=== PATIENT | male | born 1960 | race Caucasian/White ===

== ENCOUNTER 2017-06-20 05:22 | Inpatient (IN) | payer BC ==
--- NOTE | 2017-06-20 06:11 | ED ---
General Adult HPI - General Chief complaint: Extremity Injury, Lower Stated complaint: right knee pain Time Seen by Provider: 06/20/17 05:27 Source: patient, RN notes reviewed, old records reviewed Mode of arrival: ambulatory Limitations: no limitations - History of Present Illness Initial comments: This is a 57-year-old male the ER for reevaluation of right knee pain. Patient' s plenty worsening and severe right knee pain. Patient has no medical history of similar complaints. Denies any injury or trauma. No history of diabetes no fevers. Patient does have significant redness or erythema and swelling to the right knee with significant wacko range of motion, patient is unable to bend knee - Related Data Home Medications Medication Instructions Recorded Confirmed No Known Home Medications [No 06/20/17 06/20/17 Known Home Medications] Allergies Allergy/AdvReac Type Severity Reaction Status Date / Time Penicillins Allergy Rash/Hives Verified 06/20/17 05:34 Review of Systems ROS Statement: Those systems with pertinent positive or pertinent negative responses have been documented in the HPI. ROS Other: All systems not noted in ROS Statement are negative. Past Medical History Past Medical History: Hypertension History of Any Multi-Drug Resistant Organisms: None Reported Past Surgical History: No Surgical Hx Reported Past Psychological History: No Psychological Hx Reported Smoking Status: Current every day smoker Past Alcohol Use History: None Reported Past Drug Use History: None Reported General Exam Limitations: no limitations General appearance: alert, in no apparent distress Head exam: Present: atraumatic, normocephalic, normal inspection Eye exam: Present: normal appearance, PERRL, EOMI. Absent: scleral icterus, conjunctival injection, periorbital swelling ENT exam: Present: normal exam, mucous membranes moist Neck exam: Present: normal inspection. Absent: tenderness, meningismus, lymphadenopathy Respiratory exam: Present: normal lung sounds bilaterally. Absent: respiratory distress, wheezes, rales, rhonchi, stridor Cardiovascular Exam: Present: regular rate, normal rhythm, normal heart sounds. Absent: systolic murmur, diastolic murmur, rubs, gallop, clicks GI/Abdominal exam: Present: soft, normal bowel sounds. Absent: distended, tenderness, guarding, rebound, rigid Extremities exam: Present: normal inspection, full ROM, normal capillary refill , other (Right is red and erythematous and swollen, significant decreased range of motion, significant effusion). Absent: tenderness, pedal edema, joint swelling, calf tenderness Back exam: Present: normal inspection Neurological exam: Present: alert, oriented X3, CN II-XII intact Psychiatric exam: Present: normal affect, normal mood Skin exam: Present: warm, dry, intact, normal color. Absent: rash Course Vital Signs 06/20/17 06/20/17 05:31 06:56 Temperature 97.6 F Pulse Rate 94 114 H Respiratory 18 18 Rate Blood Pressure 138/67 127/73 O2 Sat by Pulse 96 99 Oximetry - Reevaluation(s) Reevaluation #1: 06/20/17 06:10 Patient feels better with pain control still is decreased range of motion of right knee unable to bend knee and severe pain, knee remains warm and edematous Reevaluation #2: 06/20/17 07:16 Despite pain medications, patient remains in severe pain with decreased range of motion right knee EKG Findings - EKG Comments: EKG Findings:: EKG shows sinus rhythm rate of 79, MN 136, QRS 86, QTc 440 Medical Decision Making - Medical Decision Making 57 male to ER for evaluation of right Knee Pain Unknown Injury, X-Rays Negative for Injury, Joint Effusion Likely, Oral Effusion Positive, Patient Be Admitted for Evaluation regarding Possible Septic Arthritis Significant Right Knee Cellulitis, IV Antibiotics and Orthopedic Evaluation - Lab Data Result diagrams: 06/20/17 06:45 Lab Results 06/20/17 Range/Units 06:45 WBC 10.0 (3.8-10.6) k/uL RBC 4.62 (4.30-5.90) m/uL Hgb 15.0 (13.0-17.5) gm/dL Hct 45.0 (39.0-53.0) % MCV 97.5 (80.0-100.0) fL MCH 32.4 (25.0-35.0) pg MCHC 33.3 (31.0-37.0) g/dL RDW 12.8 (11.5-15.5) % Plt Count 210 (150-450) k/uL Neutrophils % 79 % Lymphocytes % 13 % Monocytes % 6 % Eosinophils % 1 % Basophils % 0 % Neutrophils # 7.9 H (1.3-7.7) k/uL Lymphocytes # 1.3 (1.0-4.8) k/uL Monocytes # 0.6 (0-1.0) k/uL Eosinophils # 0.1 (0-0.7) k/uL Basophils # 0.0 (0-0.2) k/uL - Radiology Data Radiology results: report reviewed (X-ray right knee negative), image reviewed Disposition Clinical Impression: Effusion, right knee, Cellulitis of right knee Narrative: r/o Septic Arthritis Disposition: ADMITTED IP TO THIS HOSP Condition: Fair Referrals: Liseth Rodas DO [Primary Care Provider] - 1-2 days
[2017-06-20] MEDS ORDERED: MORPHINE SULFATE 5 MG/ML SYRINGE IV STA (06:16)
[2017-06-20] MEDS ORDERED: SODIUM CHLORIDE 0.9% 1,000 ML IV STA ×2 (06:16)
[2017-06-20] MEDS ORDERED: cefTRIAXone IN SWFI 1,000 MG/10 ML SYRINGE IVP STA (06:17)
[2017-06-20] MEDS ORDERED: KETOROLAC 30 MG/ML 1 ML VIAL IVP STA (06:17)
[2017-06-20] MEDS ORDERED: VANCOMYCIN IV PER PHARMACY 1 EACH MISC MISCELLANE PRN (06:17)
[2017-06-20] MEDS ORDERED: VANCOMYCIN 1,500 MG in SODIUM CHLORIDE 0.9% 250 ML IVPB STA (06:20)
--- NOTE | 2017-06-20 06:35 | XR ---
EXAM: XR Right Knee, 3 views CLINICAL HISTORY: Reason: Pain TECHNIQUE: Three views of the right knee. COMPARISON: No relevant prior studies available. FINDINGS: Bones/joints: No fracture or malalignment identified. Slightly fragmented patellar enthesophyte superiorly. Likely small joint effusion. Soft tissues: Soft tissue edema and prepatellar soft tissue swelling. IMPRESSION: 1. Soft tissue edema and prepatellar soft tissue thickening. Correlate to exclude contusion or bursitis. Questionable small joint effusion. 2. No definitive fractures.
[2017-06-20 07:02] LABS: Basophils % (A) 0 %; Eosinophils # (A) 0.1 k/uL (0-0.7); Eosinophils % (A) 1 %; Lymphocytes # (A) 1.3 k/uL (1.0-4.8); Lymphocytes % (A) 13 %; MCH 32.4 pg (25.0-35.0); MCHC 33.3 g/dL (31.0-37.0); MCV 97.5 fL (80.0-100.0); Mean Platelet Volume 6.6; Monocytes # (A) 0.6 k/uL (0-1.0); Monocytes % (A) 6 %; Neutrophils # (A) 7.9 k/uL (1.3-7.7); Neutrophils % (A) 79 %; Platelet Count 210 k/uL (150-450); RBC 4.62 m/uL (4.30-5.90); RDW 12.8 % (11.5-15.5)
[2017-06-20 07:15] LABS: INR 1.1 (<1.2); Partial Thromboplastin Time 22.7 sec (22.0-30.0); Prothrombin Time 10.4 sec (9.0-12.0)
[2017-06-20 07:16] LABS: ALT 45 U/L (21-72); AST 24 U/L (17-59); Alkaline Phosphatase 58 U/L (38-126); Anion Gap 9 mmol/L; Blood Urea Nitrogen 17 mg/dL (9-20); C Reactive Protein 12.8 mg/L (<10.0); Calcium 9.3 mg/dL (8.4-10.2); Carbon Dioxide 25 mmol/L (22-30); Chloride 105 mmol/L (98-107); Glucose 109 mg/dL (74-99); Phosphorus 3.5 mg/dL (2.5-4.5); Potassium 4.2 mmol/L (3.5-5.1); Sodium 139 mmol/L (137-145); Total Protein 6.5 g/dL (6.3-8.2)
[2017-06-20 10:22] VITALS: BMI 25.7
[2017-06-20] MEDS ORDERED: HYDROcodone/APAP 5-325MG 1 EACH TAB PO PRN (12:09)
[2017-06-20] MEDS ORDERED: ALPRAZolam 0.25 MG TAB PO PRN (12:09)
[2017-06-20] MEDS ORDERED: TEMAZEPAM 15 MG CAP PO PRN (12:09)
[2017-06-20] MEDS ORDERED: HYDROmorphone 2 MG/ML 1 ML SYRINGE IVP PRN (12:09)
--- NOTE | 2017-06-20 13:57 | XR ---
EXAMINATION TYPE: XR chest 1V DATE OF EXAM: 06/20/2017 HISTORY: SEPSIS. REFERENCE: NONE. FINDINGS: There is some scarring or atelectasis at the left lung base. Lungs otherwise clear. Pleural spaces are clear. Heart size is upper limits of normal. IMPRESSION: 1. BORDERLINE CARDIOMEGALY. 2. SCARRING VERSUS ATELECTASIS, LEFT LUNG BASE.
--- NOTE | 2017-06-20 17:00 | HP ---
HISTORY AND PHYSICAL DATE OF SERVICE: 06/20/17 CHIEF COMPLAINTS: Right knee pain. HISTORY OF PRESENT ILLNESS: This 57-year-old gentleman with past medical history of hypertension, and other multiple medical issues being followed by Dr. Rodas in the outpatient setting noted to have right knee pain and swelling for the past few days. The pain and swelling increased and because of difficulty walking the patient presented to [facility] and admitted for further evaluation and treatment. There is no history of fever, rigors or chills. No history of headache, loss of consciousness or seizures. No chest pain and no palpitation at this time. Orthopedic evaluation in progress. PAST MEDICAL HISTORY: History of hypertension, history of smoking. MEDICATIONS: Medications prior to admission include home medications are none. ALLERGIES: ASPIRIN, PENICILLIN. FAMILY HISTORY: Hypertension in the family. SOCIAL HISTORY: History of smoking on a daily basis. No history of alcohol intake. REVIEW OF SYSTEMS: ENT: No diminished vision. No diminished hearing. Cardiovascular: No angina or palpitations. Respiratory: No cough or hemoptysis. GI as mentioned earlier. : No dysuria. NERVOUS SYSTEM: No numbness or weakness. Allergy/Immunology: No asthma or hayfever. Musculoskeletal: As mentioned earlier. HEMATOLOGY/ONCOLOGY: No history of anemia. Endocrine: No history of diabetes or hypothyroidism. Constitutional: As mentioned earlier. Dermatology: Negative. Rheumatology: Negative. Psychiatric: As mentioned earlier. PHYSICAL EXAMINATION: The patient is alert, oriented times three. Pulse 84, blood pressure 115/76, respiratory rate 16, temperature is 97.8, pulse ox 97% on room air. HEENT: Conjunctivae normal. Oral mucosa moist. Neck is no carotid bruit. No lymph node enlargement. Cardiovascular: S1-S2 muffled. No S3, no S4. Respiratory: Breath sounds diminished in the bases. No rhonchi and no crackles. ABDOMEN: Soft, nontender. No mass palpable. Legs right leg swelling and tenderness and warmth present. Right knee pain and swelling and some fluctuation also present and redness also present and warmth present. Nervous system: Higher functions as mentioned earlier, moves all 4 limbs, no focal motor or sensory deficits. lymphatics: No lymph nodes palpable in the neck, axillae or groin. SKIN: No ulcer, rashes or bleeding. LABS: At this time shows CBC within normal limits and plasma lactic acid 0.6. ASSESSMENT: 1. Possible right knee cellulitis with bursitis, rule out septic arthritis. 2. History hypertension. 3. History of nicotine dependence. 4. Increased blood sugar. RECOMMENDATIONS AND DISCUSSION: In this 57-year-old gentleman who presented with multiple complex medical issues , we will monitor the patient closely. Continue the current management and symptomatic treatment. Otherwise, at this time, I recommend monitor the blood pressure closely. Resume the home medications. Otherwise I would recommend orthopedic evaluation possible aspiration. Cultures will be obtained. Closely follow with multiple other consultants. Further recommendations to follow. MMODL / IJN: [id number] / BIANKA
[2017-06-20] MEDS ORDERED: VANCOMYCIN 1,500 MG in SODIUM CHLORIDE 0.9% 250 ML IVPB SCH (18:00)
[2017-06-20] MEDS: NICOTINE 14MG/24HR PATCH TRANSDERM SCH (21:02)
[2017-06-20] MEDS: HEPARIN SODIUM,PORCINE 5,000 UNIT/ML 1 ML VIAL SQ SCH (21:10)
[2017-06-21] MEDS: ceFAZolin IN SWFI 2 GM/20 ML SYRINGE IVP SCH ×4 (00:24→23:45)
[2017-06-21 07:10] LABS: Basophils % (A) 0 %; Eosinophils % (A) 1 %; HCT 39.9 % (39.0-53.0); HGB 13.4 gm/dL (13.0-17.5); Lymphocytes # (A) 1.6 k/uL (1.0-4.8); Lymphocytes % (A) 27 %; MCH 33.1 pg (25.0-35.0); MCHC 33.5 g/dL (31.0-37.0); MCV 98.7 fL (80.0-100.0); Mean Platelet Volume 7.3; Monocytes # (A) 0.5 k/uL (0-1.0); Monocytes % (A) 8 %; Neutrophils # (A) 3.6 k/uL (1.3-7.7); Neutrophils % (A) 62 %; Platelet Count 162 k/uL (150-450); RBC 4.05 m/uL (4.30-5.90); RDW 13.7 % (11.5-15.5); WBC 5.9 k/uL (3.8-10.6)
[2017-06-21 07:38] LABS: Anion Gap 7 mmol/L; Blood Urea Nitrogen 15 mg/dL (9-20); Calcium 8.6 mg/dL (8.4-10.2); Carbon Dioxide 23 mmol/L (22-30); Chloride 111 mmol/L (98-107); Glucose 80 mg/dL (74-99); Potassium 4.3 mmol/L (3.5-5.1); Sodium 141 mmol/L (137-145)
[2017-06-21] MEDS ORDERED: LIDOCAINE 2% INJ 20 MG/ML (20 ML MDV) SQ ONE (08:30)
[2017-06-21] MEDS: NICOTINE 14MG/24HR PATCH TRANSDERM SCH (08:55)
[2017-06-21] MEDS: PANTOPRAZOLE 40 MG TABLET PO SCH ×2 (08:58→09:00)
[2017-06-21] MEDS ORDERED: cefTRIAXone IN SWFI 1,000 MG/10 ML SYRINGE IVP SCH (09:00)
[2017-06-21] MEDS ORDERED: LIDOCAINE 1% INJ 10MG/ML (20 ML MDV) ONE (11:47)
[2017-06-21] MEDS: HEPARIN SODIUM,PORCINE 5,000 UNIT/ML 1 ML VIAL SQ SCH ×2 (12:04→20:35)
--- NOTE | 2017-06-21 12:04 | CONS ---
CONSULTATION DATE OF SERVICE: 06/20/2017. REASON FOR CONSULTATION: Right knee cellulitis. HISTORY OF PRESENT ILLNESS: The patient is a 57-year-old male, presented to the ER at [facility] this morning with chief complaint of right knee swelling and pain. Apparently symptoms started over the weekend when he started having pain in the right knee area. The patient describes this pain to be mostly throbbing, almost 10/10 when severe, and he did have difficulty bending the knee and walking on it made it worse. The patient did notice some minimal erythema to the knee area. With these symptoms acutely getting worse, he presented to the ER for further evaluation of the same. The patient denies any high-grade fever or chills. No history of any trauma or landing on the knee. The patient denies having a previous history of similar problems with these symptoms. The patient has been evaluated by the ER physician. The patient did have x-rays of the right pain that did shows soft tissue edema and prepatellar soft tissue swelling. The patient did not have any high-grade fever and his white count was normal at 10, though CRP was 12.8. The patient has been started on Rocephin and vancomycin, admitted to the hospital. ID as well as Orthopedics were consulted for further recommendation for the same. REVIEW OF SYSTEMS: CONSTITUTIONAL: Positive for weakness. Denies any high-grade fever. EYES: No complaints. ENT: No complaint. RESPIRATORY: No complaint. CARDIOVASCULAR: No complaint. GENITOURINARY: No complaint. MUSCULOSKELETAL: As per HPI. INTEGUMENTARY: As per HPI. PSYCHOLOGICAL: No complaint. ENDOCRINE: No complaint. NEUROLOGIC: No complaint. PAST MEDICAL HISTORY: Hypertension. PAST SURGICAL HISTORY: No major surgery. SOCIAL HISTORY: Positive for smoking. Patient currently a smoker, smokes about a pack a day. Denies drinking or drug use. FAMILY HISTORY: No pertinent findings noticed. ALLERGIES: ASPIRIN, PENICILLIN, penicillin which is a rash. MEDICATION: Currently on [place], Xanax, heparin, Dilaudid, nicotine patch, Protonix, Restoril , Rocephin, and vancomycin. EXAMINATION: Blood pressure 103/48 with a pulse of 52, temperature of 98.2, he is 98% room. GENERAL DESCRIPTION: A middle-aged male lying in bed in no distress. No tachypnea or accessory muscle of respiration use. HEENT: Shows no pallor or scleral icterus. Oral mucosa is dry. No pharyngeal erythema or thrush NECK: Trachea central, no thyromegaly. LUNGS: Unlabored breathing. Clear to auscultation anteriorly. No wheeze or crackle. HEART: S1, S2. Regular rate and rhythm. No added sounds. ABDOMEN: Soft, no tenderness. No guarding or rigidity. No organomegaly EXTREMITIES: No edema of the feet. MUSCULOSKELETAL: Right knee with minimal swelling with minimal erythema. It is painful to touch, slightly fluctuant. No skin breakdown. No drainage. NEUROLOGIC: The patient is awake, alert, oriented x3. Mood and affect normal. LABS: Hemoglobin is 15, white count of 10,000, BUN of 17, creatinine 1.0. Electrolytes have been normal. Liver enzymes are normal. CRP was 12.8. Blood cultures obtained and currently pending. X-rays of the right knee with soft tissue swelling. DIAGNOSTIC IMPRESSION AND PLAN: Patient with right knee pain, swelling, and redness. Could be more likely prepatellar bursitis and likely from Gram-positive skin gissel, clinically doubt Gram- negative infection in a patient with no history of any recent antibiotic exposure, less likely a MRSA infection. And clinically doubt deep right knee infection PLAN: 1. Eduardo the area of redness. 2. We will discontinue the Rocephin and vancomycin. 3. We will start the patient on cefazolin 2 g every 8 hours. 4. Await ortho evaluation, possible aspirate of the area. This should be sent for culture. As that would help narrowing his antibiotic therapy 5. We will follow up on the clinical condition and culture to further adjust medication if needed. Thank you for this consultation. Will follow this patient along with you. MMODL / IJN: [id number] / BIANKA
--- NOTE | 2017-06-21 12:25 | P.CNOR ---
History of Present Illness - [facility] Consult date: 06/21/17 Consult reason: joint pain (Right knee) History of present illness: This is a 57-year-old male admitted to [facility] with severe right knee pain and redness. He denies any trauma or injury to the knee. He states he was at work and noticed acute onset of knee pain. He was seen in the emergency department and they noticed some redness and swelling. He is admitted to internal medicine and we are consulted for orthopedic evaluation. He has no known history of gout. His vitals are stable and is afebrile. White blood cell count is normal. He does have an elevated CRP. Past Medical History Past Medical History: Hypertension History of Any Multi-Drug Resistant Organisms: None Reported Past Surgical History: No Surgical Hx Reported Past Psychological History: No Psychological Hx Reported Smoking Status: Current every day smoker Past Alcohol Use History: None Reported Past Drug Use History: None Reported - Past Family History Mother History Unknown: Yes Family Medical History: Hypertension Father Family Medical History: No Reported History Medications and Allergies Home Medications Medication Instructions Recorded Confirmed Type No Known Home Medications [No 06/20/17 06/20/17 History Known Home Medications] Allergies Allergy/AdvReac Type Severity Reaction Status Date / Time aspirin AdvReac GI UPSET Verified 06/20/17 10:24 Penicillins AdvReac Rash/Hives Verified 06/20/17 10:24 Physical Examination This is a 57-year-old gentleman in no acute distress. He is alert and oriented 3. Exam of the lower extremities reveals mild erythema to the anterior aspect of the knee. There is a 1-2+ effusion noted. He has difficulty with flexion of the knee. He has significant tenderness even to light touch. There is no calf pain with palpation. Homans sign is negative. Neurovascular status to the lower extremity is intact. Results X-rays of the right knee reveal no obvious fracture. There is a bony fragment adjacent to the superior patella which does not appear acute. This may represent a calcification. Minimal degenerative changes noted to the knee. There is a small joint effusion noted on x-ray. - Labs Labs: Abnormal Lab Results - Last 24 Hours (Table) 06/21/17 06/21/17 Range/Units 06:29 06:29 RBC 4.05 L (4.30-5.90) m/uL Chloride 111 H (98-107) mmol/L Microbiology - Last 24 Hours (Table) 06/20/17 06:45 Blood Culture - Preliminary Blood No Growth after 24 hours H & H 06/20/17 06/21/17 Range/Units 06:45 06:29 Hgb 15.0 13.4 (13.0-17.5) gm/dL Hct 45.0 39.9 (39.0-53.0) % Coagulation 06/20/17 Range/Units 06:45 INR 1.1 (<1.2) Result Diagrams: 06/21/17 06:29 06/21/17 06:29 Assessment and Plan (1) Effusion, right knee Current Visit: Yes Status: Acute Code(s): M25.461 - EFFUSION, RIGHT KNEE SNOMED Code(s): 298855034 (2) Cellulitis of right knee Current Visit: Yes Status: Acute Code(s): L03.115 - CELLULITIS OF RIGHT LOWER LIMB SNOMED Code(s): 14607897 Plan: The clinical and x-ray findings are discussed the patient. The patient is evaluated by Dr. Cordova as well. Aspiration of the right knee is performed using sterile technique. Approximately 10 mL of slightly cloudy yellow fluid is obtained. The fluid is sent for culture and sensitivity as well as cell count and crystal identification. He is to continue on the current antibiotics. I will also and anti-inflammatory medication. We will continue to follow await laboratory results.
[2017-06-21 13:21] LABS: Appearance,BF Hazy; Color,BF Yellow
[2017-06-21 13:22] LABS: Nucleated Cells, Body Fluid 130 /uL; RBC, Body Fluid 2180 /uL
[2017-06-21 13:24] LABS: Mononuclear WBC,Body Fluid 82 %; Polynuclear WBC,Body Fluid 18 %; Total Cells Counted,Body Fluid 100
[2017-06-21] MEDS: INDOMETHACIN 25 MG CAP PO SCH ×2 (14:24→20:35)
--- NOTE | 2017-06-21 23:13 | PN ---
PROGRESS NOTE DATE OF SERVICE: 06/21/2017. REASON FOR FOLLOWUP: Right knee prepatellar bursitis. INTERVAL HISTORY: The patient is afebrile. His right knee pain and swelling are slightly improved compared to yesterday. The patient denies having any chest pain, shortness of breath or cough. No abdominal pain or any diarrhea. PHYSICAL EXAMINATION: Blood pressure 115/60 with a pulse of 60, temperature 97.5. He is 97% on room air. General description is a middle-aged male lying in bed in no distress. RESPIRATORY SYSTEM: Unlabored breathing. Clear to auscultation anteriorly. HEART: S1, S2. Regular rate and rhythm. ABDOMEN: Soft. No tenderness. Right knee swelling and redness have minimal improved. LABS: The patient did have a right knee aspirate with no significant elevated white count and cultures were negative. Blood culture negative so far. DIAGNOSTIC IMPRESSION AND PLAN: Patient with right knee pain and swelling, likely right knee prepatellar bursitis, likely from a Gram-positive patient responded to cefazolin. That will be continued. Will wait for the cultures to finalize. Continue with supportive care. MMODL / IJN: [id number] / BIANKA
[2017-06-22] MEDS: HEPARIN SODIUM,PORCINE 5,000 UNIT/ML 1 ML VIAL SQ SCH ×2 (07:21→20:44)
[2017-06-22] MEDS: INDOMETHACIN 25 MG CAP PO SCH ×2 (07:21→20:44)
[2017-06-22] MEDS: PANTOPRAZOLE 40 MG TABLET PO SCH ×2 (07:21→07:23)
[2017-06-22] MEDS: ceFAZolin IN SWFI 2 GM/20 ML SYRINGE IVP SCH ×2 (07:21→15:12)
[2017-06-22] MEDS: NICOTINE 14MG/24HR PATCH TRANSDERM SCH (07:30)
[2017-06-22 07:43] LABS: Basophils % (A) 1 %; Eosinophils # (A) 0.1 k/uL (0-0.7); Eosinophils % (A) 1 %; HCT 39.5 % (39.0-53.0); HGB 12.7 gm/dL (13.0-17.5); Lymphocytes # (A) 1.3 k/uL (1.0-4.8); Lymphocytes % (A) 28 %; MCHC 32.2 g/dL (31.0-37.0); MCV 99.4 fL (80.0-100.0); Mean Platelet Volume 7.4; Monocytes # (A) 0.4 k/uL (0-1.0); Monocytes % (A) 8 %; Neutrophils # (A) 2.9 k/uL (1.3-7.7); Neutrophils % (A) 60 %; Platelet Count 159 k/uL (150-450); RBC 3.97 m/uL (4.30-5.90); RDW 14.1 % (11.5-15.5); WBC 4.7 k/uL (3.8-10.6)
--- NOTE | 2017-06-22 08:03 | P.PN ---
Subjective Progress Note Date: 06/22/17 Principal diagnosis: Synovitis right knee. This is a 57-year-old male whom we are following regarding his right knee pain. The knee was aspirated yesterday. The fluid is showing no evidence of bacteria or crystals. A blood cell count in the aspirate is 130. He remains afebrile. He states his knee pain is improved since yesterday. Objective - Vital Signs Vital signs: Vital Signs Temp 98.2 F 06/22/17 07:00 Pulse 56 L 06/22/17 07:00 Resp 16 06/22/17 07:00 BP 115/64 06/22/17 07:00 Pulse Ox 98 06/22/17 07:00 Intake & Output 06/21/17 06/22/17 06/22/17 18:59 06:59 18:59 Intake Total 750 500 Balance 750 500 Intake: Intake, IV Titration 750 Amount Sodium Chloride 0.9% 1, 750 000 ml @ 100 mls/hr IV . Q10H STA Rx#:[id number] Oral 500 Other: Voiding Method Toilet # Voids 2 - Exam This is a 57-year-old male in no acute distress. He is alert and oriented 3. Exam of the right knee reveals less swelling and less erythema today. He has improved motion with flexion to about 45. He is able to straight leg raise without difficulty or pain. He has full foot and ankle motion without difficulty or pain. Neurovascular status to the lower extremity is intact. - Labs CBC & Chem 7: 06/22/17 07:11 06/21/17 06:29 Labs: Abnormal Lab Results - Last 24 Hours (Table) 06/22/17 Range/Units 07:11 RBC 3.97 L (4.30-5.90) m/uL Hgb 12.7 L (13.0-17.5) gm/dL Microbiology - Last 24 Hours (Table) 06/21/17 11:55 Gram Stain - Preliminary Knee - Right Wound Culture - Preliminary 06/21/17 11:55 Anaerobic Culture - Preliminary Knee - Right 06/20/17 21:30 Urine Culture - Preliminary Urine,Clean Catch 06/20/17 06:45 Blood Culture - Preliminary Blood No Growth after 24 hours Assessment and Plan (1) Effusion, right knee Current Visit: Yes Status: Acute Code(s): M25.461 - EFFUSION, RIGHT KNEE SNOMED Code(s): 985476917 (2) Cellulitis of right knee Current Visit: Yes Status: Acute Code(s): L03.115 - CELLULITIS OF RIGHT LOWER LIMB SNOMED Code(s): 10559854 Plan: The clinical and laboratory findings are discussed the patient. He is to continue on the antibiotics and anti-inflammatory. We will await final culture results. I anticipate discharge to home tomorrow if he continues to improve and cultures are negative.
[2017-06-22 08:25] LABS: Anion Gap 6 mmol/L; Blood Urea Nitrogen 17 mg/dL (9-20); Calcium 8.5 mg/dL (8.4-10.2); Carbon Dioxide 25 mmol/L (22-30); Chloride 111 mmol/L (98-107); Glucose 94 mg/dL (74-99); Potassium 4.7 mmol/L (3.5-5.1); Sodium 142 mmol/L (137-145)
--- NOTE | 2017-06-22 11:14 | PN ---
PROGRESS NOTE DATE OF SERVICE: 06/21/2017 This 57-year-old gentleman who was admitted with right knee pain also underwent right knee aspiration by Orthopedic Surgery. No chest pain. No palpitations. No fever. The synovial fluid shows no crystals, the RBC is only 2180. No chest pain or palpitation. No fever. PHYSICAL EXAM: On exam, alert and oriented x3. Pulse is 60, blood pressure 115/60, respirations 16, temperature 97.4, pulse ox 97% on room. HEENT: Conjunctivae normal. NECK: No jugular venous distention. CARDIOVASCULAR: S1 and S2 muffled. RESPIRATORY: Breath sounds diminished at the bases. No rhonchi, no crackles. ABDOMEN: Soft, nontender. LEGS: Right leg minimal erythema and tenderness and minimal painful joints. LABS: Labs are noted. CBC within normal limits. ASSESSMENT: 1. Possible right knee cellulitis with prepatellar bursitis. 2. History of hypertension. 3. History of nicotine dependence. 4. Increased blood sugar. RECOMMENDATIONS AND DISCUSSION: Recommend continue current medications and symptomatic treatment. Patient appears to be responding to IV antibiotics. Will follow the cultures. Will closely follow with Infectious Disease and Orthopedic Surgery. Further recommendations to follow. MMODL / IJN: [id number] /
--- NOTE | 2017-06-22 15:32 | PN ---
PROGRESS NOTE DATE OF SERVICE: 06/22/2017 INTERVAL HISTORY: This is a 57-year-old gentleman who was admitted with right knee pain and cellulitis, had a prepatellar bursitis. Patient had a joint aspiration. No chest pain. No palpitations. No fever. PHYSICAL EXAM: Alert and oriented x3. Pulse is 56, blood pressure 115/60, respirations 16, temp 98.2, pulse ox 98% on room air. HEENT" Conjunctivae normal. NECK: No jugular venous distension. CARDIOVASCULAR; S1, S2, muffled. RESPIRATORY: Breath sounds diminished at the bases, no rhonchi, no crackles. ABDOMEN: Soft, nontender. No mass palpable. LEGS: Right leg erythema present which is improving. Newer tenderness, no swelling, no fluctuation. NERVOUS SYSTEM: No focal deficits. LABS: WBC 4, hemoglobin 12.7. ASSESSMENT: 1. Right knee cellulitis with prepatellar bursitis, improving. 2. History of hypertension. 3. History of nicotine dependence. 4. Increased random blood sugar with no evidence of diabetes mellitus type 2. RECOMMENDATION: Recommend to continue with the monitoring an symptomatic treatment. Otherwise, I would recommend continue the antibiotics. Closely follow with Infectious Disease and as well as Orthopedic Surgery. Further recommendations to follow. MMODL / IJN: [id number] /
--- NOTE | 2017-06-22 22:28 | PN ---
PROGRESS NOTE DATE OF SERVICE: 06/22/2017 REASON FOR FOLLOWUP: Right knee prepatellar bursitis, whole-knee cellulitis. INTERVAL HISTORY: The patient is afebrile, has been breathing comfortably. Denies any pain and swelling has improved. He is able to bend it more. Denies having any chest pain, shortness of breath or cough. No abdominal pain or diarrhea. EXAMINATION: Blood pressure 117/59 with a pulse of 57, temperature of 98.2. He is 97% on room air. General description is a middle-aged male lying in bed in no distress. RESPIRATORY SYSTEM: Unlabored breathing. Clear to auscultation anteriorly. HEART: S1, S2. Regular rate and rhythm. ABDOMEN: Soft. No tenderness. RIGHT KNEE: Overall swelling and redness is much improved. LABS: BUN of 17, creatinine 0.86. Hemoglobin is 12.7, white count 4.7. DIAGNOSTIC IMPRESSION AND PLAN: Patient with right knee likely prepatellar bursitis which is showing overall improvement on cefazolin that will be continued with the plan to finish therapy with p.o. Keflex 500 mg t.i.d. for another week to 10 days. Continue supportive care. MMODL / IJN: [id number] /
[2017-06-23] MEDS: ceFAZolin IN SWFI 2 GM/20 ML SYRINGE IVP SCH ×2 (00:28→08:28)
[2017-06-23 07:01] LABS: Basophils % (A) 1 %; Eosinophils # (A) 0.1 k/uL (0-0.7); Eosinophils % (A) 2 %; HCT 39.8 % (39.0-53.0); HGB 12.5 gm/dL (13.0-17.5); Lymphocytes # (A) 1.3 k/uL (1.0-4.8); Lymphocytes % (A) 29 %; MCH 31.1 pg (25.0-35.0); MCHC 31.3 g/dL (31.0-37.0); MCV 99.6 fL (80.0-100.0); Mean Platelet Volume 7.6; Monocytes # (A) 0.3 k/uL (0-1.0); Monocytes % (A) 7 %; Neutrophils # (A) 2.8 k/uL (1.3-7.7); Neutrophils % (A) 60 %; Platelet Count 172 k/uL (150-450); RDW 13.8 % (11.5-15.5); WBC 4.6 k/uL (3.8-10.6)
[2017-06-23 07:10] LABS: Anion Gap 5 mmol/L; Blood Urea Nitrogen 17 mg/dL (9-20); Calcium 8.5 mg/dL (8.4-10.2); Carbon Dioxide 25 mmol/L (22-30); Chloride 112 mmol/L (98-107); Glucose 84 mg/dL (74-99); Potassium 4.4 mmol/L (3.5-5.1); Sodium 142 mmol/L (137-145)
[2017-06-23] MEDS: PANTOPRAZOLE 40 MG TABLET PO SCH (07:38)
--- NOTE | 2017-06-23 07:53 | P.PN ---
Subjective Progress Note Date: 06/23/17 Principal diagnosis: Synovitis right knee. This is a 57-year-old male whom we are following regarding his right knee pain. The knee was aspirated. The fluid is showing no evidence of bacteria or crystals. A blood cell count in the aspirate is 130. He remains afebrile. He states his knee pain is improved significantly since yesterday. Objective - Vital Signs Vital signs: Vital Signs Temp 97.4 F L 06/23/17 00:41 Pulse 60 06/23/17 00:41 Resp 20 06/23/17 00:41 BP 131/77 06/23/17 00:41 Pulse Ox 98 06/23/17 00:41 Intake & Output 06/22/17 06/23/17 06/23/17 18:59 06:59 18:59 Intake Total 3360 Balance 3360 Intake: Intake, IV Titration 1600 Amount Sodium Chloride 0.9% 1, 1600 000 ml @ 100 mls/hr IV . Q10H STA Rx#:[id number] Oral 1760 Other: Voiding Method Toilet # Voids 2 3 - Exam This is a 57-year-old male in no acute distress. He is alert and oriented 3. Exam of the right knee reveals less swelling and less erythema today. He has improved motion with flexion to about 100 today. He is able to straight leg raise without difficulty or pain. He has full foot and ankle motion without difficulty or pain. Neurovascular status to the lower extremity is intact. - Labs CBC & Chem 7: 06/23/17 06:40 06/23/17 06:40 Labs: Abnormal Lab Results - Last 24 Hours (Table) 06/22/17 06/22/17 06/23/17 Range/Units 07:11 07:11 06:40 RBC 3.97 L 4.00 L (4.30-5.90) m/uL Hgb 12.7 L 12.5 L (13.0-17.5) gm/dL Chloride 111 H (98-107) mmol/L 06/23/17 Range/Units 06:40 RBC (4.30-5.90) m/uL Hgb (13.0-17.5) gm/dL Chloride 112 H (98-107) mmol/L Microbiology - Last 24 Hours (Table) 06/20/17 21:30 Urine Culture - Final Urine,Clean Catch 06/21/17 11:55 Gram Stain - Preliminary Knee - Right Wound Culture - Preliminary 06/20/17 06:45 Blood Culture - Preliminary Blood No Growth after 48 hours Assessment and Plan (1) Effusion, right knee Current Visit: Yes Status: Acute Code(s): M25.461 - EFFUSION, RIGHT KNEE SNOMED Code(s): 525274492 (2) Cellulitis of right knee Current Visit: Yes Status: Acute Code(s): L03.115 - CELLULITIS OF RIGHT LOWER LIMB SNOMED Code(s): 05730483 Plan: The clinical and laboratory findings are discussed the patient. Orthopedically he is stable for discharge. I recommend continuing on the anti-inflammatory medication for another 7-10 days. Antibiotics will be up to the discretion of internal medicine. He is follow-up in our office in 1 week for reevaluation.
[2017-06-23] MEDS: HEPARIN SODIUM,PORCINE 5,000 UNIT/ML 1 ML VIAL SQ SCH (08:28)
[2017-06-23] MEDS: INDOMETHACIN 25 MG CAP PO SCH (08:28)
[2017-06-23] MEDS: NICOTINE 14MG/24HR PATCH TRANSDERM SCH (08:32)
[2017-06-23 09:50] VITALS: BP 141/69; PULSE 68; RESP 17; TEMP 96.5
--- NOTE | 2017-06-23 15:21 | PN ---
PROGRESS NOTE DATE OF SERVICE: 06/23/17 REASON FOR FOLLOWUP: Right knee prepatellar bursitis. INTERVAL HISTORY: The patient is afebrile. Has been seen on rounds this morning. Has been breathing comfortably. Pain to right knee is currently controlled. He is able to bend his knee further and able to walk on it. Denies having any chest pain or shortness of breath or cough. No abdominal pain or diarrhea. EXAMINATION: Blood pressure 141/59 with a pulse of 68, temperature 96.5. He is 99% on room air. General description is a middle-aged male lying in bed in no distress. Respiratory system unlabored breathing, clear to auscultation anteriorly. Heart S1, S2. Regular rate and rhythm. Abdomen soft, no tenderness. Right knee swelling and redness has much improved. No tenderness. LABS: White count 4.6. The right knee aspirate cultures are negative. DIAGNOSTIC IMPRESSION AND PLAN: Patient right knee prepatellar bursitis. Overall improvement on cefazolin. Plan to finish therapy the p.o. Keflex. Scripts were sent to the pharmacy with close outpatient followup. MMODL / IJN: [id number] /
--- NOTE | 2017-06-23 18:09 | P.DS ---
Providers Date of admission: 06/21/17 14:16 Attending physician: Yamilet Walls Consults: 06/20/17 07:13 Consult Physician Routine Consulting Provider: Amaury Cordova Consult Reason/Comments: ROsepticarthritis Do you want consulting provider notified?: Yes 06/20/17 15:31 Consult Physician Routine Consulting Provider: Michelle Franco Consult Reason/Comments: rt knee cellulitis? Do you want consulting provider notified?: Yes Primary care physician: Liseth Rodas Hospital Course: Patient was admitted for prepatellar bursitis and the patient was a valid by infectious disease as well as arthritic surgery and patient is being discharged on anti-inflammatory is an Keflex for 10 days Patient Condition at Discharge: Fair Plan - Discharge Summary Discharge Rx Participant: No New Discharge Prescriptions: New Indomethacin [Indocin] 75 mg PO BID PRN #60 cap PRN Reason: pain, inflammation Cephalexin [Keflex] 500 mg PO Q6HR #40 cap Discharge Medication List Cephalexin [Keflex] 500 mg PO Q6HR #40 cap 06/23/17 [Rx] Indomethacin [Indocin] 75 mg PO BID PRN #60 cap 06/23/17 [Rx] Follow up Appointment(s)/Referral(s): Liseth Rodas DO [Primary Care Provider] - 1-2 days (Please call Office to make your follow-up appt.) Amaury Cordova MD [STAFF PHYSICIAN] - 07/01/17 9:00 am Michelle Franco MD [STAFF PHYSICIAN] - 07/08/17 9:45 am Activity/Diet/Wound Care/Special Instructions: Continue on anti-inflammatory medication for 7-10 days. May bear weight as tolerated. Discharge Disposition: HOME SELF-CARE
== END 2017-06-23 14:16 | disposition home or self-care (01) | DRG 558 ==
LOC: EC 05:22 → 3SUR 07:13 → UNDOADMOB 07:13 → 3SUR 07:13 → OBSVTOIN 06-21 14:16 → INTOOBSV 06-21 14:16 → UNDODISIN 06-23 14:16
PROVIDERS: ADMIT Hospitalist; ATTEND Hospitalist
DX: M70.41 Prepatellar bursitis, right knee (principal); L03.115 Cellulitis of right lower limb; I10 Essential (primary) hypertension; R79.82 Elevated C-reactive protein (CRP); M25.461 Effusion, right knee; F17.200 Nicotine dependence, unspecified, uncomplicated; R73.9 Hyperglycemia, unspecified; B96.89 Other specified bacterial agents as the cause of diseases classified elsewhere; Z88.6 Allergy status to analgesic agent; Z88.0 Allergy status to penicillin; Z82.49 Family history of ischemic heart disease and other diseases of the circulatory system
CPT/HCPCS: 36415; 71045; 80048; 80053; 83605; 83735; 84100; 84550; 85025; 85610; 85652; 85730; 86140; 87040; 87070; 87075; 87086; 87205; 89050; 89060; 93005; 96365; 96366; 96375; 99285

== ENCOUNTER 2019-04-26 18:02 | Emergency (ER) | payer BC, OTHER ==
[2019-04-26 18:11] VITALS: TEMP 97.5
[2019-04-26] MEDS ORDERED: MORPHINE SULFATE 4 MG/ML SYRINGE IV STA (18:57)
[2019-04-26] MEDS ORDERED: SODIUM CHLORIDE 0.9% 1,000 ML IV STA (18:57)
--- NOTE | 2019-04-26 19:17 | ED ---
General Adult HPI - General Source: patient, RN notes reviewed, old records reviewed Mode of arrival: ambulatory Limitations: no limitations <Eyal Hough - Last Filed: 04/26/19 23:12> <Mann Otto - Last Filed: 04/27/19 00:09> - General Chief complaint: Extremity Problem,Nontraumatic Stated complaint: Poss DVT Time Seen by Provider: 04/26/19 18:43 - History of Present Illness Initial comments: 59-year-old male patient with past history of hypertension presents to ED with chief complaint of right great toe pain. Patient reports that has been ongoing for approximately 10 days. Patient was that he was seen by his primary care provider approximate 4 days ago at that time plain films are taken as well as investigation for possible gout he reports these were negative. Patient works that the pain continues toe is discolored, purple. Denies any other areas of pain, denies any other complaints. Denies any symptoms of systemic infection. Systemic: Pt denies fatigue, fever/chills, rash. Pt denies weakness, night sweats, weight loss. Neuro: Pt denies headache, visual disturbances, syncope or pre-syncope. HEENT: Pt denies ocular discharge or irritation, otalgia, rhinorrhea, pharyngitis or notable lymphadenopathy. Cardiopulmonary: Pt denies chest pain, SOB, heart palpitations, dyspnea on exertion. Abdominal/GI: Pt denies abdominal pain, n/v/d. : Pt denies dysuria, burning w/ urination, frequency/urgency. Denies new onset urinary or bowel incontinence. MSK: Pt denies loss of strength or function in extremities. Neuro: Pt denies new onset weakness, paresthesias. (Eyal Hough) - Related Data Previous Rx's Medication Instructions Recorded Hydrocodone/Acetaminophen [Snowmass 1 each PO Q6HR PRN 3 Days #12 tab 04/26/19 5-325] Allergies Allergy/AdvReac Type Severity Reaction Status Date / Time aspirin AdvReac GI UPSET Verified 04/26/19 22:58 Penicillins AdvReac Rash/Hives Verified 04/26/19 22:58 Review of Systems ROS Other: All systems not noted in ROS Statement are negative. <Eyal Hough - Last Filed: 04/26/19 23:12> ROS Other: All systems not noted in ROS Statement are negative. <Mann Otto - Last Filed: 04/27/19 00:09> ROS Statement: Those systems with pertinent positive or pertinent negative responses have been documented in the HPI. Past Medical History Past Medical History: Hypertension History of Any Multi-Drug Resistant Organisms: None Reported Past Surgical History: No Surgical Hx Reported Past Psychological History: No Psychological Hx Reported Smoking Status: Current every day smoker Past Alcohol Use History: None Reported Past Drug Use History: None Reported - Past Family History Mother History Unknown: Yes Family Medical History: Hypertension Father Family Medical History: No Reported History <Eyal Hough - Last Filed: 04/26/19 23:12> General Exam Limitations: no limitations <Eyal Hough - Last Filed: 04/26/19 23:12> - General Exam Comments Initial Comments: Constitutional: NAD, AOX3, Pt has pleasant affect. HEENT: NC/AT, trachea midline, neck supple, no lymphadenopathy. Posterior pharynx non erythematous, without exudates. External ears appear normal, without discharge. Mucous membranes moist. Eyes PERRLA, EOM intact. There is no scleral icterus. No pallor noted. Cardiopulmonary: RRR, no murmurs, rubs or gallops, no JVD noted. Lungs CTAB in anterior and posterior martini. No peripheral edema. Abdominal exam: Abdomen soft and non-distended. Abdomen non-tender to palpation in all 4 quadrants. Bowel sounds active in LLQ. No hepatosplenomegaly. No ecchymosis Neuro: CN II-XII grossly intact. No nuchal rigidity. No raccon eyes, no hickman sign, no hemotympanum. No cervical spinal tenderness. MSK: Right great toe cyanotic, slightly delayed capillary refill, tender to palpation. All other toes pink warm capillary refill less than 2 seconds. Posterior tibialis and dorsalis pedis pulse +1 bilaterally equal. No posterior calf tenderness bilaterally, homans sign negative bilaterally. Sensation intact in upper and lower extremities. Full active ROM in upper and lower extremities, 5/5 stregnth. (Eyal Hough) Course Vital Signs 04/26/19 04/26/19 18:08 22:45 Temperature 97.5 F L Pulse Rate 103 H 75 Respiratory 18 16 Rate Blood Pressure 176/99 153/77 O2 Sat by Pulse 99 98 Oximetry Medical Decision Making - Lab Data Result diagrams: 04/26/19 19:20 04/26/19 19:20 <Eyal Hough - Last Filed: 04/26/19 23:12> - Lab Data Result diagrams: 04/26/19 19:20 04/26/19 19:20 <KristingraceMann Wolfe - Last Filed: 04/27/19 00:09> - Medical Decision Making 59-year-old male patient with past history of hypertension presents to ED with chief complaint of right great toe pain. Patient reports that has been ongoing for approximately 10 days. Patient was that he was seen by his primary care provider approximate 4 days ago at that time plain films are taken as well as investigation for possible gout he reports these were negative. Patient works that the pain continues toe is discolored, purple. Denies any other areas of pain, denies any other complaints. Denies any symptoms of systemic infection. Patient vital signs displayed hypertension otherwise stable. Physical exam displayed: Right great toe cyanotic, delayed capillary refill, tender to palpation. All other toes pink warm capillary refill less than 2 seconds. Posterior tibialis and dorsalis pedis pulse +1 bilaterally equal. Left inv estigation non-impressive. CBC CMP negative. CRP negative. ESR 2. Plain film negative. CT angiography displayed multiple areas of atherosclerotic plaque with approximately 50% stenosis of the distal abdominal aorta and 50% stenosis of the common iliac arteries bilaterally.There is noticeable displayed decreased arterial opacification the left foot compared to the right. Clinically this appears to be a chronically cyanotic great toe rather than an acute process. Due to timeframe heparinization is not indicated. Case was discussed with Dr. Meza as well as Dr. Otto. We will examined patient. Case also discussed with on-call after surgery Dr. Pena, who recommended aspirin and she'll see him in the office. Patient reports a serious aspirin ALLERGY and would not like to take it. Patient was discharged with close outpatient follow- up and return precautions. (Eyal Hough) 59-year-old male presenting with ecchymotic right great toe. Exam reveals tenderness to palpation, there is brisk cap refill, there is palpable pulses in the foot. There is concern for vascular pathology or did discuss case with covering vascular surgeon Dr. Pena. Recommends close outpatient follow-up. No need for further evaluation treatment. (Mann Otto) - Lab Data Lab Results 04/26/19 04/26/19 04/26/19 Range/Units 19:20 19:20 19:20 WBC 8.2 (3.8-10.6) k/uL RBC 4.69 (4.30-5.90) m/uL Hgb 15.4 (13.0-17.5) gm/dL Hct 45.6 (39.0-53.0) % MCV 97.2 (80.0-100.0) fL MCH 32.8 (25.0-35.0) pg MCHC 33.7 (31.0-37.0) g/dL RDW 13.0 (11.5-15.5) % Plt Count 252 (150-450) k/uL Neutrophils % 68 % Lymphocytes % 19 % Monocytes % 8 % Eosinophils % 1 % Basophils % 1 % Neutrophils # 5.6 (1.3-7.7) k/uL Lymphocytes # 1.6 (1.0-4.8) k/uL Monocytes # 0.7 (0-1.0) k/uL Eosinophils # 0.1 (0-0.7) k/uL Basophils # 0.1 (0-0.2) k/uL ESR 2 (0-15) mm/hr Sodium 140 (137-145) mmol/L Potassium 4.4 (3.5-5.1) mmol/L Chloride 107 (98-107) mmol/L Carbon Dioxide 22 (22-30) mmol/L Anion Gap 11 mmol/L BUN 21 H (9-20) mg/dL Creatinine 0.90 (0.66-1.25) mg/dL Est GFR (CKD-EPI)AfAm >90 (>60 ml/min/1.73 sqM) Est GFR (CKD-EPI)NonAf >90 (>60 ml/min/1.73 sqM) Glucose 101 H (74-99) mg/dL Plasma Lactic Acid Toño 1.3 (0.7-2.0) mmol/L Calcium 9.5 (8.4-10.2) mg/dL Total Bilirubin 0.8 (0.2-1.3) mg/dL AST 37 (17-59) U/L ALT 39 (21-72) U/L Alkaline Phosphatase 86 (38-126) U/L C-Reactive Protein <5.0 (<10.0) mg/L Total Protein 7.5 (6.3-8.2) g/dL Albumin 4.6 (3.5-5.0) g/dL Disposition Is patient prescribed a controlled substance at d/c from ED?: No <Eyal Hough - Last Filed: 04/26/19 23:12> <Mann Otto - Last Filed: 04/27/19 00:09> Clinical Impression: Ischemic toe, Atherosclerosis Disposition: HOME SELF-CARE Condition: Stable Instructions (If sedation given, give patient instructions): How to Stop Smoking (ED), Low Fat Diet (ED) Additional Instructions: Follow-up with vascular surgery first thing in the morning. Follow with primary care provider tomorrow as well. Return immediately to the ER if condition worsens. Prescriptions: Hydrocodone/Acetaminophen [Snowmass 5-325] 1 each PO Q6HR PRN 3 Days #12 tab PRN Reason: Pain Referrals: Liseth Rodas DO [Primary Care Provider] - 1-2 days Zakiya Pena DO [STAFF PHYSICIAN] - 1-2 days
--- NOTE | 2019-04-26 19:39 | XR ---
EXAMINATION TYPE: XR foot complete RT DATE OF EXAM: 04/26/2019 COMPARISON: NONE HISTORY: Pain and bruising TECHNIQUE: 3 views FINDINGS: Metatarsals are intact. I see no fracture nor dislocation. There are no erosions. Joint spa christy are fairly normal. IMPRESSION: Negative right foot exam.
[2019-04-26 19:47] LABS: Basophils # (A) 0.1 k/uL (0-0.2); Basophils % (A) 1 %; Eosinophils # (A) 0.1 k/uL (0-0.7); Eosinophils % (A) 1 %; HCT 45.6 % (39.0-53.0); HGB 15.4 gm/dL (13.0-17.5); Lymphocytes # (A) 1.6 k/uL (1.0-4.8); Lymphocytes % (A) 19 %; MCH 32.8 pg (25.0-35.0); MCHC 33.7 g/dL (31.0-37.0); MCV 97.2 fL (80.0-100.0); Mean Platelet Volume 5.5; Monocytes # (A) 0.7 k/uL (0-1.0); Monocytes % (A) 8 %; Neutrophils # (A) 5.6 k/uL (1.3-7.7); Neutrophils % (A) 68 %; Platelet Count 252 k/uL (150-450); RBC 4.69 m/uL (4.30-5.90); WBC 8.2 k/uL (3.8-10.6)
[2019-04-26 19:50] LABS: ALT 39 U/L (21-72); AST 37 U/L (17-59); African American GFR (CKD) >90 (>60 ml/min/1.73 sqM); Albumin 4.6 g/dL (3.5-5.0); Alkaline Phosphatase 86 U/L (38-126); Anion Gap 11 mmol/L; Blood Urea Nitrogen 21 mg/dL (9-20); C Reactive Protein <5.0 mg/L (<10.0); Calcium 9.5 mg/dL (8.4-10.2); Carbon Dioxide 22 mmol/L (22-30); Chloride 107 mmol/L (98-107); Glucose 101 mg/dL (74-99); Potassium 4.4 mmol/L (3.5-5.1); Sodium 140 mmol/L (137-145); Total Bilirubin 0.8 mg/dL (0.2-1.3); Total Protein 7.5 g/dL (6.3-8.2)
[2019-04-26 21:00] LABS: Erythrocyte Sedimentation Rate 2 mm/hr (0-15)
--- NOTE | 2019-04-26 21:52 | CT ---
EXAMINATION TYPE: CT angio abd aorta w/Runoff DATE OF EXAM: 04/26/2019 COMPARISON: None HISTORY: leg pain and discoloration CT DLP: 1814.2 mGycm, Automated Exposure Control for Dose Reduction was Utilized. CONTRAST: CT scan of the abdomen and pelvis is performed with oral and with IV Contrast, patient injected with 100 mL of Isovue 370. Multiple axial sections were obtained from the aortic arch to the bottom of the feet with intravenous contrast. There are 3-D post processed images. FINDINGS: There is mild enlargement of the thyroid gland consistent with a goiter. There is normal branching pa ttern of the great vessels on the aortic arch. There is no mediastinal adenopathy. Thoracic aorta is intact without evidence of aneurysm or dissection. There are calcified paratracheal lymph nodes. Ther e are no hilar masses. I see no filling defects in the pulmonary arteries. Heart size is normal. There is no pericardial effusion. Stomach appears normal. Liver spleen pancreas gallbladder appear normal. Bile ducts are not dilated. There is no adrenal mass. Kidneys show satisf actory contrast opacification. There is no hydronephrosis. There is no retroperitoneal adenopathy. . There is no abdominal aortic aneurysm or dissection. There is patency of the celiac artery and superi or mesenteric artery. There is patency of the renal arteries. There is bilateral patency of the iliac and femoral arteries. There is plaque formation and luminal narrowing of the distal abdominal aorta. There is plaque format ion and approximate 50% lumen narrowing of the common iliac arteries bilaterally. There is arterial f low in the internal and external iliac arteries bilaterally. There is bilateral arterial flow in the femoral arteries. There is some variable plaque formation in the left femoral artery. There is some p laque at the left popliteal artery. Narrowing is approximately 25%. There is patency of the left tibi al artery and the tibial artery trifurcation. On the left side there is arterial flow in the distal l eft posterior tibial artery at the ankle. There is very little contrast seen in the dorsalis pedis ar rio. On the right side there is patency of the femoral artery. There is mild plaque formation in the right mid femoral artery. Lumen narrowing is probably 50%. There is patency of the right popliteal artery. There is patency of the tibial artery and the right tibial artery trifurcation. There is posterior t ibial artery flow at the right ankle. There is a small dorsalis pedis artery at the right foot. There is asymmetric decreased arterial opacification of the left foot compared to the right. The bladder distends smoothly. There is no ascites. There is no free air. There is no mesenteric [place] a. There is no sign of a bowel obstruction. There is no inguinal hernia. IMPRESSION: Multiple areas of atherosclerotic plaque with approximate 50% stenosis of the distal abdominal aorta and 50% stenosis of the common iliac arteries bilaterally. There is variable plaque formation in the femoral arteries bilaterally up to 50%. There is a noticeable decreased arterial opacification of the left foot compared to the right that samaniego ggests proximal hemodynamic stenosis.
[2019-04-26] MEDS ORDERED: ASPIRIN 325 MG TAB PO STA (22:34)
[2019-04-26 23:00] VITALS: BP 153/77; PULSE 75; RESP 16
[2019-04-26] MEDS ORDERED: ACET/COD 300 MG/30 MG STARTER PACK 6 TAB BTL PO STA (23:34)
== END 2019-04-27 00:02 | disposition home or self-care (01) ==
LOC: EC 18:02
DX: I70.0 Atherosclerosis of aorta (principal); I99.8 Other disorder of circulatory system; I10 Essential (primary) hypertension; F17.200 Nicotine dependence, unspecified, uncomplicated; Z88.0 Allergy status to penicillin; Z88.6 Allergy status to analgesic agent; Z82.49 Family history of ischemic heart disease and other diseases of the circulatory system
CPT/HCPCS: 36415; 80053; 85652; 83605; 85025; 86140; 87040; 73630; 75635; 99284; 96365; 96366 ×2; 96375; J2270; J0696; Q9967

== ENCOUNTER → 2019-08-28 | Outpatient (CLI) | payer OTHER | END | disposition home or self-care (01) | DX: I70.203 Unspecified atherosclerosis of native arteries of extremities, bilateral legs (principal) | CPT/HCPCS: 93351 ==

== ENCOUNTER 2022-06-04 08:12 | Day surgery (SDC) | payer OTHER ==
[2022-06-02 11:51] VITALS: BMI 26.4
[~2022-06-04 08:12] MED LIST: LACTATED RINGERS 1,000 ML IV SCH
[2022-06-04 08:44] VITALS: TEMP 97.6
[2022-06-04] MEDS ORDERED: PROPOFOL 10 MG/ML 20 ML VIAL IV ONE (09:36)
--- NOTE | 2022-06-04 09:38 | P.GSHP ---
History of Present Illness H&P Date: 06/04/22 Chief Complaint: Screening colonoscopy Is a 62-year-old male who presents today for screening colonoscopy. Patient denies any significant GI complaints. Past Medical History Past Medical History: Hearing Disorder / Deafness, Hypertension, Vascular Disorder Additional Past Medical History / Comment(s): Heart murmur. Hard of hearing in left ear. History of Any Multi-Drug Resistant Organisms: None Reported Past Surgical History: No Surgical Hx Reported Additional Past Surgical History / Comment(s): Stents in bilateral legs. Right t oe amputated. Past Anesthesia/Blood Transfusion Reactions: No Reported Reaction Past Psychological History: No Psychological Hx Reported Smoking Status: Former smoker Past Alcohol Use History: None Reported Additional Past Alcohol Use History / Comment(s): Quit smoking 2 weeks ago, smoked since age 18. Past Drug Use History: None Reported - Past Family History Mother History Unknown: Yes Family Medical History: Hypertension Father Family Medical History: Cancer Additional Family Medical History / Comment(s): Prostate cancer. Medications and Allergies Home Medications Medication Instructions Recorded Confirmed Type Aspirin [Adult Low Dose Aspirin EC] 81 mg PO DAILY 06/02/22 06/02/22 History Atorvastatin [Lipitor] 20 mg PO DAILY 06/02/22 06/02/22 History Rivaroxaban [Xarelto] 20 mg PO DAILY 06/02/22 06/02/22 History Allergies Allergy/AdvReac Type Severity Reaction Status Date / Time aspirin AdvReac GI UPSET Verified 06/02/22 11:39 Penicillins AdvReac Rash/Hives Verified 06/02/22 11:39 Surgical - Exam Vital Signs Temp Pulse Resp BP Pulse Ox 97.6 F 72 20 165/73 98 06/04/22 08:41 06/04/22 08:41 06/04/22 08:41 06/04/22 08:41 06/04/22 08:41 - General well developed, well nourished, no distress - Eyes PERRL - ENT normal pinna - Neck no masses - Respiratory normal expansion - Cardiovascular Rhythm: regular - Abdomen Abdomen: soft, non tender Assessment and Plan Assessment: Perform screening colonoscopy
--- NOTE | 2022-06-04 09:56 | P.OP ---
Date of Procedure: 06/04/22 Preoperative Diagnosis: Screening colonoscopy Postoperative Diagnosis: Diverticulosis Internal and external hemorrhoids Procedure(s) Performed: Colonoscopy Anesthesia: MAC Surgeon: Michael Georges Pathology: none sent Condition: stable Disposition: PACU Description of Procedure: The patient's placed on the endoscopy table in the lateral position. He received IV sedation. Digital rectal exam performed. There were internal and external hemorrhoids noted. The flexible colonoscope was then placed patient anus and passed throughout the entire colon. The ileocecal valve was visualized. There was a poor prep in the right colon. This limited view of the cecum. The visualized sigmoid colon appeared normal. Scope was brought back to the transverse colon was normal. In the descending; there is moderate diverticular changes. Scope was then brought back the rectum and this appeared normal. Scope withdrawn for patient.
[2022-06-04 10:06] VITALS: RESP 16
[2022-06-04 10:40] VITALS: BP 125/68; PULSE 52
== END 2022-06-04 10:36 | disposition home or self-care (01) ==
LOC: ORWHC2ENDO 08:12
PROVIDERS: ATTEND Surgery
DX: Z12.11 Encounter for screening for malignant neoplasm of colon (principal); K62.1 Rectal polyp; K64.4 Residual hemorrhoidal skin tags; K64.8 Other hemorrhoids; K57.30 Diverticulosis of large intestine without perforation or abscess without bleeding; H91.90 Unspecified hearing loss, unspecified ear; I10 Essential (primary) hypertension; Z86.2 Personal history of diseases of the blood and blood-forming organs and certain disorders involving the immune mechanism; Z89.421 Acquired absence of other right toe(s); Z87.891 Personal history of nicotine dependence; Z82.49 Family history of ischemic heart disease and other diseases of the circulatory system; Z80.42 Family history of malignant neoplasm of prostate; Z79.82 Long term (current) use of aspirin; Z79.02 Long term (current) use of antithrombotics/antiplatelets; Z79.01 Long term (current) use of anticoagulants; Z88.0 Allergy status to penicillin; Z88.6 Allergy status to analgesic agent
CPT/HCPCS: 88305; 45380; J2704